=== PATIENT | male | born 1970 | race Caucasian/White ===

== ENCOUNTER → 2017-02-10 | Outpatient (REF) | payer OTHER ==
[2017-02-10 12:24] LABS: ALBUMIN 3.9 GM/DL (3.2-5.2); ALBUMIN/GLOBULIN RATIO 1.18 (1.00-1.93); ALKALINE PHOSPHATASE 84 U/L (45-117); ALT/SGPT 70 U/L (12-78); ANION GAP 9 MEQ/L (8-16); AST/SGOT 29 U/L (15-37); BILIRUBIN,TOTAL 0.7 MG/DL (0.2-1.0); BLOOD UREA NITROGEN 21 MG/DL (7-18); CALCIUM LEVEL 8.7 MG/DL (8.5-10.1); CARBON DIOXIDE LEVEL 26 MEQ/L (21-32); CHLORIDE LEVEL 110 MEQ/L (98-107); CHOLESTEROL LEVEL 213 MG/DL (<200); CREATININE FOR GFR 1.15 MG/DL (0.70-1.30); GLOMERULAR FILTRATION RATE > 60.0 (>60); GLUCOSE, FASTING 100 MG/DL (70-105); POTASSIUM SERUM 4.2 MEQ/L (3.5-5.1); SODIUM LEVEL 145 MEQ/L (136-145); TOTAL PROTEIN 7.2 GM/DL (6.4-8.2); TRIGLYCERIDES LEVEL 127 MG/DL (<150)
== END ==
LOC: M LABDRAW1 09:37
PROVIDERS: ATTEND Emergency Medicine
DX: Z00.00 Encounter for general adult medical examination without abnormal findings (principal)

== ENCOUNTER → 2018-08-25 | Outpatient (CLI) | payer OTHER ==
--- NOTE | 2018-08-26 02:06 | REP ---
Clinical: Lumbago. Comparison: 07/29/2010 Technique: AP, lateral, bilateral oblique, and coned-down views. Findings: Evidence for chronic stable spondylolysis and grade 1 spondylolisthesis at the L5-S1. Mild multilevel degenerative changes include subtle endplate sclerosis. No acute fracture / compression injury. Impression: Chronic stable L5 spondylolysis and grade 1 spondylolisthesis at L5-S1. Electronically Signed by Osman Julien MD 08/26/2018 01:58 A
== END ==
LOC: M WUC 17:38
PROVIDERS: ATTEND Physician Assistant
DX: M54.42 Lumbago with sciatica, left side (principal); M43.06 Spondylolysis, lumbar region

== ENCOUNTER → 2018-08-25 | Outpatient (REF) | payer OTHER ==
[2018-08-25 13:43] LABS: ALBUMIN 4.2 GM/DL (3.2-5.2); ALT/SGPT 57 U/L (12-78); BILIRUBIN,TOTAL 0.6 MG/DL (0.2-1.0); BLOOD UREA NITROGEN 20 MG/DL (7-18); CALCIUM LEVEL 8.7 MG/DL (8.5-10.1); CARBON DIOXIDE LEVEL 26 MEQ/L (21-32); CHLORIDE LEVEL 110 MEQ/L (98-107); CHOLESTEROL LEVEL 201 MG/DL (<200); CHOLESTEROL RISK RATIO 5.583 (<5); CREATININE FOR GFR 1.04 MG/DL (0.70-1.30); GLOMERULAR FILTRATION RATE > 60.0 (>56); GLUCOSE, FASTING 86 MG/DL (70-100); HDL CHOLESTEROL 36 MG/DL (>40); LDL CHOLESTEROL 144 MG/DL (<100); MAGNESIUM LEVEL 2.4 MG/DL (1.8-2.4); NON-HDL-C 165 MG/DL; POTASSIUM SERUM 4.2 MEQ/L (3.5-5.1); SODIUM LEVEL 143 MEQ/L (136-145); TOTAL PROTEIN 7.3 GM/DL (6.4-8.2); TRIGLYCERIDES LEVEL 106 MG/DL (<150)
== END ==
LOC: M LABDRAW1 12:01
PROVIDERS: ATTEND Physician Assistant
DX: E78.2 Mixed hyperlipidemia (principal)

== ENCOUNTER 2020-05-03 11:47 | Inpatient (IN) | payer OTHER ==
[~2020-05-03] VITALS: Ht 162.6 cm; Wt 83.5 kg
[2020-05-03 12:22] LABS: BASO % 0.2 % (0.0-1.0); HEMATOCRIT 41.4 % (42.0-52.0); HEMOGLOBIN 13.4 g/dl (13.5-17.5); LYMPH # 0.7 10^3/uL (1.5-5.0); MEAN CORPUSCULAR HGB CONC 32.4 g/dl (32.0-36.5); MEAN CORPUSCULAR VOLUME 86.6 fl (80.0-96.0); MONO # 0.2 10^3/uL (0.0-0.8); MONO % 2.2 % (0.0-5.0); NEUTROPHILS # 7.4 10^3/uL (1.5-8.5); NEUTROPHILS % 87.8 % (36.0-66.0); PLATELET COUNT, AUTOMATED 228 10^3/uL (150-450); RED BLOOD COUNT 4.78 10^6/uL (4.30-6.10); WHITE BLOOD COUNT 8.5 10^3/uL (4.0-10.0)
--- NOTE | 2020-05-03 12:26 | REP ---
INDICATION: Coronavirus workup COMPARISON: 07/03/2007 TECHNIQUE: Portable AP view of the chest FINDINGS: Diffuse bilateral interstitial and alveolar infiltrates are appreciated including moderate to large areas of consolidation in the left mid to lower lung zone. No obvious effusion. No pneumothorax. Mediastinum and cardiac silhouette within normal limits. Skeletal structures intact. IMPRESSION: Multifocal infiltrates and areas of consolidation consistent with COVID-19 <Electronically signed by Osman Julien > 05/03/20 1222
[2020-05-03 12:34] LABS: INR 1.16; PROTHROMBIN TIME 15.1 SECONDS (12.5-14.3)
[2020-05-03] MEDS: NS 1,000 ML IV SCH ×2 (12:34→16:19)
[2020-05-03 12:35] LABS: PARTIAL THROMBOPLASTIN TIME 36.7 SECONDS (24.2-38.5)
[2020-05-03 12:38] LABS: D-DIMER QUANT 1472.89 ng/ml (<500)
[2020-05-03] MEDS ORDERED: cefTRIAXone SOD 1 GM in D5W MINI-BAG PLUS 50 ML IV ONE (12:45)
[2020-05-03] MEDS ORDERED: AZITHROMYCIN INJ 500 MG, VIAL MATE ADAPTER 1 EACH in D5W 250 ML IV ONE (12:45)
[2020-05-03] MEDS ORDERED: ACET-897 PO (12:46)
[2020-05-03 13:13] LABS: ALBUMIN 2.9 GM/DL (3.2-5.2); ALT/SGPT 53 U/L (12-78); BILIRUBIN,TOTAL 0.7 MG/DL (0.2-1.0); BLOOD UREA NITROGEN 18 MG/DL (7-18); CALCIUM LEVEL 7.9 MG/DL (8.5-10.1); CARBON DIOXIDE LEVEL 25 MEQ/L (21-32); CHLORIDE LEVEL 103 MEQ/L (98-107); CK-MB VALUE MASS < 1.0 NG/ML (<3.6); CPK CREATINE PHOSPHOKINASE 470 U/L (39-308); CREATININE FOR GFR 1.16 MG/DL (0.70-1.30); FERRITIN 2532 NG/ML (26-388); GLOMERULAR FILTRATION RATE > 60.0 (>56); GLUCOSE, FASTING 118 MG/DL (70-100); LDH LACTATE DEHYDROGENASE 952 U/L (87-241); MAGNESIUM LEVEL 2.2 MG/DL (1.8-2.4); MB/CK RELATIVE INDEX 0.21 (< OR =4); POTASSIUM SERUM 3.3 MEQ/L (3.5-5.1); SODIUM LEVEL 136 MEQ/L (136-145); TOTAL PROTEIN 6.4 GM/DL (6.4-8.2); TROPONIN I < 0.02 NG/ML (< 0.10)
--- NOTE | 2020-05-03 14:14 | HPEPDOC ---
[facility] Medical History & Physical Date of Admission May 03, 2020 Date of Service: May 03, 2020 History and Physical Chief complaint: Subjective the ER with weakness and fatigue History of present illness: Patient is a 50-year-old male with a PMHx DLP, Depression, Chronic back pain, Seasonal allergies, who presented to the emergency room reporting weakness and fatigue. Patient reported that on 04/24 he was expressing a mild cough and symptoms of an upper respiratory tract infection and ultimately went for COVID-19 testing on 04/26 at [place]. Patient was found to be positive and remained at home. Patient reported that he was resting throughout the week and drinking plenty of fluid. He noted that he was progressively feeling weaker and came to the ER for further evaluation. Currently patient denies any chest pain or palpitations. He denies any significant shortness of breath. He does report a mild cough without any significant expectoration of sputum. Patient reports some nausea without vomiting. Denies any abdominal pain. Does report diarrhea and has experience 3 loose bowel movements yesterday without any evidence of blood. Patient denies any urinary discomfort. Patient reports that he may have experienced fevers but nothing too significant and does report chills while at home. Reports his appetite is been fairly poor but is unsure of any changes in his weight. Past Medical History: DLP, Depression, Chronic back pain, Seasonal allergies Past Surgical History: Patient denies any prior surgeries. 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 Review of Systems: 10 point review of systems complete, all negative otherwise stated in HPI Physical exam: - Vitals: BP [126/80], HR [96], RR [20], Sat [94%Vapotherm@[id number]], Temp [99.1F] - General: Lying on his stomach in bed, No acute distress and actually reports that he is more comfortable, AAOx3 - HEENT: NC, AT, PERRLA, EOMI - CVS: RRR, +S1S2, - Murmurs / rubs / gallops - Lungs: Fair air entry bilaterally, auscultation 30 does not appear to be any wheezing, rhonchi or rales - Abdomen: Soft, Non-distended, Non-tender - Extremities: No evidence of edema, No calf tenderness - Neuro: No focal motor or sensory deficit - Skin: No visible rashes Labs: See below Imaging: CXR 05/02: Diffuse bilateral interstitial and alveolar infiltrates are appreciated including moderate to large areas of consolidation in the left mid to lower lung zone. No obvious effusion. No pneumothorax. Mediastinum and cardiac silhouette within normal limits. Skeletal structures intact. EKG: See below Assessment and Plan: Acute hypoxic respiratory failure - likely 2/2 pneumonia - 2/2 COVID-19 pneumonia, less likely 2/2 bacterial pneumonia - Resented to the emergency room with progressive, however, denied any shortness of breath or significant cough - Physical does not reveal any significant adventitious lung sounds - Patient was profoundly hypoxic when he came to the emergency room saturating at 74% on room air; however, was not in respiratory distress - Patient has been placed on VapoTherm at 100% FiO2 and his saturations have improved to 94-95% - [facility] - Lab work reveals marked elevation of all inflammatory markers - CXR 05/03: Multifocal infiltrates and areas of consolidation consistent with COVID-19 - Consulted pulmonology; Dr. Soto; case discussed - Discussed with Anesthesia telecommunications professional about the possibility of intubation if patient has a clinical deterioration - Will check blood cultures / sputum cultures / trend inflammatory markers - Will start Dexamethasone / Remdesivir / Tocilizumab - Will c/w Ceftriaxone and Doxycycline (Day #1) - will discontinue once procalcitonin results and is negative - Will start incentive spirometry / acapella - ICU for VapoTherm and Prone positioning and high risk of intubation if he continues to experience a clinical decline Hypokalemia - Will supplement via PO route Normocytic anemia - Will continue follow CBC DLP - Currently not on medications Depression - Currently not on medications Chronic back pain - Will start Tylenol PRN Seasonal allergies - Currently not on medications DVT prophylaxis - Will start weight based DVT prophylaxis; Lovenox 40 BID Vital Signs Vital Signs Date Time Temp Pulse Resp B/P (MAP) Pulse Ox O2 Delivery O2 Flow Rate FiO2 05/03/20 13:00 96 20 126/80 (95) 94 High Flow Cannula 40.0 100 05/03/20 11:56 99.1 Laboratory Data Labs 24H Laboratory Tests 2 05/03/20 11:58: Lactic Acid Level 2.1*H 05/03/20 12:00: Anion Gap 8, Glomerular Filtration Rate > 60.0, Calcium Level 7.9L, Magnesium Level 2.2, Ferritin 2532H, Total Bilirubin 0.7, Aspartate Amino Transf (AST/SGOT) 80H, Alanine Aminotransferase (ALT/SGPT) 53, Alkaline Phosphatase 60, Lactate Dehydrogenase 952H, Total Creatine Kinase 470H, Creatine Kinase MB < 1.0, Creatine Kinase MB Relative Index 0.21, Troponin I < 0.02, C-Reactive Protein, Quantitative 18.90H, Total Protein 6.4, Albumin 2.9L, Albumin/Globulin Ratio 0.8, Procalcitonin 0.62 05/03/20 12:02: Immature Granulocyte % (Auto) 1.8, Neutrophils (%) (Auto) 87.8H, Lymphocytes (%) (Auto) 8.0L, Monocytes (%) (Auto) 2.2, Eosinophils (%) (Auto) 0.0, Basophils (%) (Auto) 0.2, Neutrophils # (Auto) 7.4, Lymphocytes # (Auto) 0.7L, Monocytes # (Auto) 0.2, Eosinophils # (Auto) 0.0, Basophils # (Auto) 0.0, Nucleated Red Blood Cells % (auto) 0.4H 05/03/20 12:03: Prothrombin Time 15.1H, Prothromb Time International Ratio 1.16, Activated Partial Thromboplast Time 36.7, Fibrinogen 789H, D-Dimer, Quantitative 1472.89H 05/03/20 12:11: POC pH (Misc Panel) 7.512H, POC Base Excess (Misc Panel) 0.0, POC Saturated Percent O2 (Misc) 94L, POC pO2 (Misc Panel) 63.0L, POC pCO2 (Misc Panel) 28.5L, POC HCO3 (Misc Panel) 22.9, POC Total CO2 (Misc Panel) 24.0, POC Troponin I (Misc) 0.01 05/03/20 12:23: POC Total CO2 (Misc Panel) 23.0, POC Glucose (Misc Panel) 121H, POC Sodium (Misc Panel) 135L, POC Potassium (Misc Panel) 3.0L, POC Chloride (Misc Panel) 100, POC Blood Urea Nitrogen (Misc Panel 17, POC Ionized Calcium (Misc Panel) 4.2L, POC Creatinine (Misc Panel) 1.0, POC Hematocrit (Misc Panel) 41.0 CBC/BMP Laboratory Tests 05/03/20 12:00 05/03/20 12:02 Microbiology Microbiology 05/03/20 Blood Culture, Received Pending 05/03/20 Blood Culture, Received Pending Home Medications Scheduled PRN Acetaminophen (Tylenol Extra Strength) 500 Mg Tablet, 1,000 MG PO Q6H PRN for PAIN / FEVER Allergies Coded Allergies: No Known Allergies (Unverified , 05/03/20) HAMIDA GONZALEZ MD May 03, 2020 14:14
[2020-05-03] MEDS ORDERED: POTASSIUM CHLORIDE 10 MEQ SR TABLET PO ONE (14:15)
[2020-05-03] MEDS ORDERED: NS IV ONE (15:00)
[2020-05-03] MEDS ORDERED: TOCILIZUMAB IV ONE (15:00)
[2020-05-03 15:05] VITALS: BP 122/84
[2020-05-03] MEDS: dexameTHASONE 4 MG/ML 1ML VIAL (J1100 PER 1MG) IV SCH (15:23)
[2020-05-03] MEDS ORDERED: REMDESIVIR (INVESTIGATIONAL) 200 MG in NS 210 ML IV ONE (16:00)
--- NOTE | 2020-05-03 16:17 | ECGEPIP ---
[facility] - ED Test Date: 2020-05-03 Pat Name: JOSE FLORENCE Department: Room: - Gender: Male Hyperbaric Tech: : [id number] Requested By: Leanna Sanderson Order Number: [id number] Reading MD: Leanna Sanderson Measurements Intervals [place] Rate: 109 P: 7 MD: 177 QRS: -8 QRSD: 78 T: -7 QT: 325 QTc: 439 Interpretive Statements SINUS TACHYCARDIA POSSIBLE LEFT ATRIAL ENLARGEMENT ABNORMAL RHYTHM ECG NSTTW abnormalities No prior Electronically Signed on 05-03-2020 16:17:39 EST by Leanna Sanderson
[2020-05-03 17:43] VITALS: BP 125/81
[2020-05-03] MEDS: DOXYCYCLINE HYCLATE 100 MG in D5W MINI-BAG PLUS 100 ML IV SCH (18:20)
[2020-05-03 20:00] VITALS: BP 123/89
[2020-05-03] MEDS ORDERED: ENOXAPARIN 100MG/1ML SYRINGE (J1650 PER 10MG) SC SCH (21:00)
[2020-05-04] VITALS (9 sets, daily range): BP systolic 108–144; BP diastolic 71–92; O2SAT 91
[2020-05-04] MEDS: NS 1,000 ML IV SCH ×3 (01:28→21:03)
[2020-05-04] MEDS: DOXYCYCLINE HYCLATE 100 MG in D5W MINI-BAG PLUS 100 ML IV SCH ×2 (03:20→14:34)
[2020-05-04 05:17] LABS: HEMATOCRIT 39.4 % (42.0-52.0); HEMOGLOBIN 12.4 g/dl (13.5-17.5); MEAN CORPUSCULAR HEMOGLOBIN 27.9 pg (27.0-33.0); MEAN CORPUSCULAR HGB CONC 31.5 g/dl (32.0-36.5); MEAN CORPUSCULAR VOLUME 88.5 fl (80.0-96.0); PLATELET COUNT, AUTOMATED 251 10^3/uL (150-450); RED BLOOD COUNT 4.45 10^6/uL (4.30-6.10); WHITE BLOOD COUNT 6.4 10^3/uL (4.0-10.0)
[2020-05-04 05:33] LABS: INR 1.13; PROTHROMBIN TIME 14.8 SECONDS (12.5-14.3)
[2020-05-04 05:34] LABS: PARTIAL THROMBOPLASTIN TIME 41.7 SECONDS (24.2-38.5)
[2020-05-04 05:54] LABS: ALBUMIN 2.5 GM/DL (3.2-5.2); ALT/SGPT 48 U/L (12-78); BILIRUBIN,DIRECT 0.2 MG/DL (0.0-0.2); BILIRUBIN,TOTAL 0.5 MG/DL (0.2-1.0); BLOOD UREA NITROGEN 17 MG/DL (7-18); CALCIUM LEVEL 7.6 MG/DL (8.5-10.1); CARBON DIOXIDE LEVEL 26 MEQ/L (21-32); CHLORIDE LEVEL 108 MEQ/L (98-107); CREATININE FOR GFR 0.93 MG/DL (0.70-1.30); FERRITIN 2108 NG/ML (26-388); GLOMERULAR FILTRATION RATE > 60.0 (>56); GLUCOSE, FASTING 127 MG/DL (70-100); MAGNESIUM LEVEL 2.3 MG/DL (1.8-2.4); POTASSIUM SERUM 4.2 MEQ/L (3.5-5.1); SODIUM LEVEL 140 MEQ/L (136-145); TOTAL PROTEIN 5.6 GM/DL (6.4-8.2)
[2020-05-04 05:58] LABS: ATYPICAL LYMPH 2 % (0-5); LYMPHOCYTES 12 % (16-44); MONOCYTES 2 % (0-5); NEUTROPHILS 81 % (28-66); PLATELET ESTIMATE NORMAL (NORMAL)
[2020-05-04] MEDS ORDERED: ENOXAPARIN 40MG/0.4ML SYRINGE (J1650 PER 10MG) SC SCH (07:59)
[2020-05-04] MEDS: ENOXAPARIN 40MG/0.4ML SYRINGE (J1650 PER 10MG) SC SCH ×2 (08:16→21:03)
--- NOTE | 2020-05-04 10:28 | CCN ---
CRITICAL CARE NOTE DATE: 05/04/2020 CRITICAL CARE TIME: 30 minutes. This excludes all procedures. SUBJECTIVE: I viewed the patient from the bedside. According to the patient's nurse, he has a nonproductive cough. He is proning most of the time, but has had some back pain. His oxygen requirements have actually decreased. He is now on 80% FiO2 with a liter flow rate of 40 with oxygen saturations in the mid 90s. When I left him yesterday, he was on 100% FiO2 with a 40 liter flow rate bordering on 88-89%. We were asked to follow the patient mainly for treatment for COVID with remdesivir, Decadron, and he has already received tocilizumab. He is on the 5-day course currently for the remdesivir. I think this is adequate. We are attempting to avoid intubation. It does appear that his ferritin and AST have decreased. He has a minimal bandemia of 3% today with a white blood cell count of 6.4. CRP has decreased to 17.4. I have added Protonix for DVT prophylaxis. OBJECTIVE: Vital signs today temperature is 98.4, pulse is 80, respiratory rate 19, blood pressure is 130/80 with a mean arterial pressure of 97. Oxygen saturation is 95% on 0.80. The remainder of the physical exam was not performed due to decreased exposure to COVID patients. Physical examination was performed by the primary care team. ASSESSMENT: Severe hypoxic respiratory failure secondary to COVID pneumonia. PLAN: Recommend continuing Decadron and remdesivir. I have added Protonix for GI prophylaxis. The patient is on Lovenox for DVT prophylaxis at the 0.5 mg/kg every 12 hours. We will continue to monitor for continued respiratory failure.
[2020-05-04] MEDS: cefTRIAXone SOD 1 GM in D5W MINI-BAG PLUS 50 ML IV SCH (12:09)
[2020-05-04] MEDS: PANTOPRAZOLE 40MG VIAL (C9113 PER 1) IV SCH (12:09)
[2020-05-04] MEDS: dexameTHASONE 4 MG/ML 1ML VIAL (J1100 PER 1MG) IV SCH (14:35)
[2020-05-04] MEDS: REMDESIVIR (INVESTIGATIONAL) 100 MG in NS 230 ML IV SCH (16:20)
--- NOTE | 2020-05-04 18:17 | IPNPDOC ---
Text Note Date of Service The patient was seen on 05/04/20. NOTE Subjective: Patient chart reviewed, discussed with nurse. No acute overnight events reported. No new medical complaints reported. Reported to have occasional episodes of diaphoresis. Objective: VS: O2 sats 95% with vapotherm on FiO2 0.8 General: NAD, lying comfortably in bed A/P: 50 yo male presented for several day history of worsening weakness and fatigue, admitted for severe hypoxic respiratory failure secondary to COVID pneumonia with PMHx DLP, depression, chronic back pain, and seasonal allergies. A/P: #Acute hypoxic respiratory failure - 2/2 COVID-19 pneumonia - continue decadron, remdesivir day #1 - supplemental oxygen - vapotherm at FiO2 0.8 - to maintain O2 sats >90% - Will check blood cultures / sputum cultures / trend inflammatory markers - ceftriaxone and Doxycycline (Day #2) - incentive spirometry / acapella - inflammatory markers improving #Hypokalemia - resolved - continue to monitor #Normocytic anemia - Will continue follow CBC #DLP - Currently not on medications #Depression - Currently not on medications #Chronic back pain - Tylenol PRN #Seasonal allergies - Currently not on medications #DVT prophylaxis - Lovenox 40BID #GI prophylaxis - protonix VS,Fishbone, I+O VS, Fishbone, I+O Laboratory Tests 05/04/20 04:50 Vital Signs Date Time Temp Pulse Resp B/P (MAP) Pulse Ox O2 Delivery O2 Flow Rate FiO2 05/04/20 17:00 99.6 81 90 HVNI-Vapotherm 40.0 80 05/04/20 16:00 20 132/89 (103) I&O- Last 24 Hours up to 6 AM 05/04/20 05:59 Intake Total 2952.5 ml Output Total 600 ml Balance 2352.5 ml LES FLORES MD May 04, 2020 18:17
[2020-05-05] VITALS (12 sets, daily range): BP systolic 126–152; BP diastolic 83–94
[2020-05-05] MEDS: DOXYCYCLINE HYCLATE 100 MG in D5W MINI-BAG PLUS 100 ML IV SCH ×2 (03:56→14:21)
[2020-05-05 05:00] LABS: BASO % 0.2 % (0.0-1.0); HEMATOCRIT 38.5 % (42.0-52.0); HEMOGLOBIN 12.1 g/dl (13.5-17.5); LYMPH # 0.6 10^3/uL (1.5-5.0); LYMPH % 8.6 % (24.0-44.0); MEAN CORPUSCULAR HEMOGLOBIN 27.7 pg (27.0-33.0); MEAN CORPUSCULAR HGB CONC 31.4 g/dl (32.0-36.5); MEAN CORPUSCULAR VOLUME 88.1 fl (80.0-96.0); MONO # 0.3 10^3/uL (0.0-0.8); MONO % 4.2 % (0.0-5.0); NEUTROPHILS # 5.4 10^3/uL (1.5-8.5); NEUTROPHILS % 84.6 % (36.0-66.0); PLATELET COUNT, AUTOMATED 304 10^3/uL (150-450); RED BLOOD COUNT 4.37 10^6/uL (4.30-6.10); WHITE BLOOD COUNT 6.4 10^3/uL (4.0-10.0)
[2020-05-05 05:12] LABS: INR 1.18; PROTHROMBIN TIME 15.3 SECONDS (12.5-14.3)
[2020-05-05 05:13] LABS: PARTIAL THROMBOPLASTIN TIME 36.6 SECONDS (24.2-38.5)
[2020-05-05 05:23] LABS: ALBUMIN 2.4 GM/DL (3.2-5.2); ALT/SGPT 47 U/L (12-78); BILIRUBIN,DIRECT 0.2 MG/DL (0.0-0.2); BILIRUBIN,TOTAL 0.5 MG/DL (0.2-1.0); BLOOD UREA NITROGEN 21 MG/DL (7-18); C REACTIVE PROTEIN QUANTITATIV 8.58 MG/DL (0.00-0.30); CALCIUM LEVEL 7.7 MG/DL (8.5-10.1); CARBON DIOXIDE LEVEL 23 MEQ/L (21-32); CHLORIDE LEVEL 113 MEQ/L (98-107); CREATININE FOR GFR 0.85 MG/DL (0.70-1.30); FERRITIN 1960 NG/ML (26-388); GLOMERULAR FILTRATION RATE > 60.0 (>56); GLUCOSE, FASTING 124 MG/DL (70-100); MAGNESIUM LEVEL 2.3 MG/DL (1.8-2.4); POTASSIUM SERUM 3.8 MEQ/L (3.5-5.1); SODIUM LEVEL 143 MEQ/L (136-145); TOTAL PROTEIN 5.3 GM/DL (6.4-8.2)
[2020-05-05] MEDS: PANTOPRAZOLE 40MG VIAL (C9113 PER 1) IV SCH (08:34)
[2020-05-05] MEDS: ENOXAPARIN 40MG/0.4ML SYRINGE (J1650 PER 10MG) SC SCH ×2 (08:35→20:19)
--- NOTE | 2020-05-05 11:44 | IPNPDOC ---
Text Note Date of Service The patient was seen on 05/05/20. NOTE Subjective: Patient chart reviewed, discussed with nurse. No acute overnight events reported. No new medical complaints reported. Diarrhea is improving. Patient states he is feeling better. Objective: VS: O2 sats 95% with vapotherm on FiO2 0.4 General: NAD, lying comfortably in bed A/P: 50 yo male presented for several day history of worsening weakness and fatigue, admitted for severe hypoxic respiratory failure secondary to COVID pneumonia with PMHx DLP, depression, chronic back pain, and seasonal allergies. A/P: #Acute hypoxic respiratory failure - 2/2 COVID-19 pneumonia - continue decadron, remdesivir day #2 - supplemental oxygen - vapotherm at FiO2 0.8 - to maintain O2 sats >90% - Will check blood cultures / sputum cultures / trend inflammatory markers - ceftriaxone and Doxycycline (Day #3) - incentive spirometry / acapella - inflammatory markers improving #Hypokalemia - resolved - continue to monitor #Normocytic anemia - Will continue follow CBC #DLP - Currently not on medications #Depression - Currently not on medications #Chronic back pain - Tylenol PRN #Seasonal allergies - Currently not on medications #DVT prophylaxis - Lovenox 40BID #GI prophylaxis - protonix Disposition: continue current plan of care, patient improving VS,Jazzmine, I+O VS, Jazzmine, I+O Laboratory Tests 05/05/20 04:48 Vital Signs Date Time Temp Pulse Resp B/P (MAP) Pulse Ox O2 Delivery O2 Flow Rate FiO2 05/05/20 09:00 78 92 HVNI-Vapotherm 40.0 60 05/05/20 08:00 142/88 (106) 05/05/20 06:00 18 05/05/20 04:00 98.0 I&O- Last 24 Hours up to 6 AM 05/05/20 06:00 Intake Total 2200 ml Output Total 1150 ml Balance 1050 ml LES FLORES MD May 05, 2020 11:44
[2020-05-05] MEDS: cefTRIAXone SOD 1 GM in D5W MINI-BAG PLUS 50 ML IV SCH (12:49)
[2020-05-05] MEDS: NS 1,000 ML IV SCH (12:49)
[2020-05-05] MEDS: SLF 3 ML SYR IV SCH ×2 (14:21→20:38)
[2020-05-05] MEDS: dexameTHASONE 4 MG/ML 1ML VIAL (J1100 PER 1MG) IV SCH (14:21)
[2020-05-05] MEDS: REMDESIVIR (INVESTIGATIONAL) 100 MG in NS 230 ML IV SCH (16:29)
[2020-05-06] VITALS (12 sets, daily range): BP systolic 115–148; BP diastolic 61–96
[2020-05-06] MEDS: NS 1,000 ML IV SCH ×3 (02:55→13:46)
[2020-05-06] MEDS: DOXYCYCLINE HYCLATE 100 MG in D5W MINI-BAG PLUS 100 ML IV SCH ×2 (03:11→14:59)
[2020-05-06 05:09] LABS: HEMATOCRIT 37.2 % (42.0-52.0); HEMOGLOBIN 12.1 g/dl (13.5-17.5); MEAN CORPUSCULAR HEMOGLOBIN 28.9 pg (27.0-33.0); MEAN CORPUSCULAR HGB CONC 32.5 g/dl (32.0-36.5); MEAN CORPUSCULAR VOLUME 88.8 fl (80.0-96.0); PLATELET COUNT, AUTOMATED 333 10^3/uL (150-450); RED BLOOD COUNT 4.19 10^6/uL (4.30-6.10); WHITE BLOOD COUNT 5.8 10^3/uL (4.0-10.0)
[2020-05-06 05:20] LABS: INR 1.31; PARTIAL THROMBOPLASTIN TIME 34.1 SECONDS (24.2-38.5); PROTHROMBIN TIME 16.6 SECONDS (12.5-14.3)
[2020-05-06 05:29] LABS: ALBUMIN 2.3 GM/DL (3.2-5.2); ALT/SGPT 52 U/L (12-78); BILIRUBIN,DIRECT 0.1 MG/DL (0.0-0.2); BILIRUBIN,TOTAL 0.5 MG/DL (0.2-1.0); BLOOD UREA NITROGEN 20 MG/DL (7-18); CALCIUM LEVEL 7.7 MG/DL (8.5-10.1); CARBON DIOXIDE LEVEL 24 MEQ/L (21-32); CHLORIDE LEVEL 111 MEQ/L (98-107); CREATININE FOR GFR 0.78 MG/DL (0.70-1.30); FERRITIN 1633 NG/ML (26-388); GLOMERULAR FILTRATION RATE > 60.0 (>56); GLUCOSE, FASTING 112 MG/DL (70-100); MAGNESIUM LEVEL 2.1 MG/DL (1.8-2.4); POTASSIUM SERUM 3.7 MEQ/L (3.5-5.1); SODIUM LEVEL 140 MEQ/L (136-145); TOTAL PROTEIN 5.4 GM/DL (6.4-8.2)
[2020-05-06 05:39] LABS: ATYPICAL LYMPH 2 % (0-5); LYMPHOCYTES 12 % (16-44); MONOCYTES 5 % (0-5); NEUTROPHILS 80 % (28-66)
[2020-05-06 05:40] LABS: PLATELET ESTIMATE NORMAL (NORMAL)
[2020-05-06] MEDS: SLF 3 ML SYR IV SCH ×3 (06:29→21:45)
[2020-05-06] MEDS: PANTOPRAZOLE 40MG VIAL (C9113 PER 1) IV SCH (08:48)
[2020-05-06] MEDS: ENOXAPARIN 40MG/0.4ML SYRINGE (J1650 PER 10MG) SC SCH ×2 (08:48→21:11)
[2020-05-06] MEDS: cefTRIAXone SOD 1 GM in D5W MINI-BAG PLUS 50 ML IV SCH (13:46)
[2020-05-06] MEDS: ACETAMINOPHEN TAB 650MG DOSE (2X325MG) PO PRN ×2 (15:33→21:12)
[2020-05-06] MEDS: REMDESIVIR (INVESTIGATIONAL) 100 MG in NS 230 ML IV SCH (16:17)
--- NOTE | 2020-05-06 19:17 | IPNPDOC ---
Text Note Date of Service The patient was seen on 05/06/20. NOTE Subjective: Patient chart reviewed, discussed with nurse. No acute overnight events reported. No new medical complaints reported., Tolerating diet. Patient states he is feeling better. Objective: VS: O2 sats 95% with vapotherm on FiO2 0.4 General: NAD, lying comfortably in bed A/P: 50 yo male presented for several day history of worsening weakness and fatigue, admitted for severe hypoxic respiratory failure secondary to COVID pneumonia with PMHx DLP, depression, chronic back pain, and seasonal allergies. A/P: #Acute hypoxic respiratory failure - 2/2 COVID-19 pneumonia - continue decadron, remdesivir day #3 - supplemental oxygen - vapotherm weaned to FiO2 0.4 - to maintain O2 sats >90% - Will check blood cultures / sputum cultures / trend inflammatory markers - ceftriaxone and Doxycycline (Day #4) - incentive spirometry / acapella - inflammatory markers improving #Hypokalemia - resolved - continue to monitor #Normocytic anemia - Will continue follow CBC #DLP - Currently not on medications #Depression - Currently not on medications #Chronic back pain - Tylenol PRN #Seasonal allergies - Currently not on medications #DVT prophylaxis - Lovenox 40BID #GI prophylaxis - protonix Disposition: continue current plan of care, patient improving VS,Jazzmine, I+O VS, Jazzmine, I+O Laboratory Tests 05/06/20 04:41 05/06/20 04:42 Vital Signs Date Time Temp Pulse Resp B/P (MAP) Pulse Ox O2 Delivery O2 Flow Rate FiO2 05/06/20 18:08 82 145/90 (108) 91 HVNI-Vapotherm 40.0 40 05/06/20 16:00 97.6 20 I&O- Last 24 Hours up to 6 AM 05/06/20 06:00 Intake Total 3240 ml Output Total 2025 ml Balance 1215 ml LES FLORES MD May 06, 2020 19:17
[2020-05-06] MEDS ORDERED: zolPIDEM TARTRATE 5 MG TAB PO ONE (19:30)
[2020-05-06] MEDS: SLF 3 ML SYR IV PRN (21:12)
[2020-05-07] VITALS (9 sets, daily range): BP systolic 121–151; BP diastolic 86–101; O2SAT 91
[2020-05-07] MEDS: DOXYCYCLINE HYCLATE 100 MG in D5W MINI-BAG PLUS 100 ML IV SCH ×2 (02:07→14:27)
[2020-05-07] MEDS: NS 1,000 ML IV SCH ×2 (02:07→09:13)
[2020-05-07 05:17] LABS: HEMATOCRIT 38.2 % (42.0-52.0); HEMOGLOBIN 12.1 g/dl (13.5-17.5); MEAN CORPUSCULAR HEMOGLOBIN 27.8 pg (27.0-33.0); MEAN CORPUSCULAR HGB CONC 31.7 g/dl (32.0-36.5); MEAN CORPUSCULAR VOLUME 87.6 fl (80.0-96.0); PLATELET COUNT, AUTOMATED 321 10^3/uL (150-450); RED BLOOD COUNT 4.36 10^6/uL (4.30-6.10); WHITE BLOOD COUNT 5.4 10^3/uL (4.0-10.0)
[2020-05-07 05:37] LABS: ATYPICAL LYMPH 3 % (0-5); EOSINOPHILS 2 % (0-3); LYMPHOCYTES 18 % (16-44); MONOCYTES 4 % (0-5); NEUTROPHILS 71 % (28-66)
[2020-05-07 05:38] LABS: PLATELET ESTIMATE NORMAL (NORMAL)
[2020-05-07] MEDS: SLF 3 ML SYR IV SCH ×3 (05:43→20:01)
[2020-05-07 05:46] LABS: INR 1.19; PARTIAL THROMBOPLASTIN TIME 33.6 SECONDS (24.2-38.5); PROTHROMBIN TIME 15.4 SECONDS (12.5-14.3)
[2020-05-07 05:48] LABS: ALBUMIN 2.3 GM/DL (3.2-5.2); ALT/SGPT 83 U/L (12-78); BILIRUBIN,DIRECT 0.2 MG/DL (0.0-0.2); BILIRUBIN,TOTAL 0.7 MG/DL (0.2-1.0); BLOOD UREA NITROGEN 18 MG/DL (7-18); C REACTIVE PROTEIN QUANTITATIV 2.06 MG/DL (0.00-0.30); CALCIUM LEVEL 7.3 MG/DL (8.5-10.1); CARBON DIOXIDE LEVEL 24 MEQ/L (21-32); CHLORIDE LEVEL 109 MEQ/L (98-107); CREATININE FOR GFR 0.72 MG/DL (0.70-1.30); FERRITIN 1386 NG/ML (26-388); GLOMERULAR FILTRATION RATE > 60.0 (>56); GLUCOSE, FASTING 85 MG/DL (70-100); MAGNESIUM LEVEL 1.9 MG/DL (1.8-2.4); POTASSIUM SERUM 3.6 MEQ/L (3.5-5.1); SODIUM LEVEL 139 MEQ/L (136-145); TOTAL PROTEIN 4.8 GM/DL (6.4-8.2)
[2020-05-07] MEDS: PANTOPRAZOLE 40MG VIAL (C9113 PER 1) IV SCH (09:07)
[2020-05-07] MEDS: ENOXAPARIN 40MG/0.4ML SYRINGE (J1650 PER 10MG) SC SCH ×2 (09:07→20:00)
[2020-05-07] MEDS ORDERED: RAMELTEON 8 MG TAB (ROZEREM) PO PRN (13:00)
--- NOTE | 2020-05-07 13:01 | IPNPDOC ---
Text Note Date of Service The patient was seen on 05/07/20. NOTE Subjective: Patient seen and examined at bedside. Complains of low back pain . He reports that he always has a back issue it is now just worse sitting and laying in the bed all day. He also has some continuing loose bowel movements but says its getting thicker. Denies any abdominal pain or nausea or vomiting. Reports that he is able to finish 75% of his meals. Says that feeling better. Objective: VS: As below General: NAD, sitting up in bed in no acute distress. HEENT: NC/AT, moist mucous membranes, anicteric eyes. Neck no JVD, no thyromegaly Chest: Bilateral good air entry, crackles at the left base>right, No wheezing or ronchi. CVS: S1, S2 regular, mild tachycardia, no rub or murmur or gallop Abdomen: soft, nontender, bowel sounds normal Extremities: no edema , No calf tenderness. Labs and Radiology: reviewed. A/P: 50 yo male PMHx DLP, depression, chronic back pain, and seasonal allergies presented for several day history of worsening weakness and fatigue, admitted for severe hypoxic respiratory failure secondary to COVID pneumonia. Acute hypoxic respiratory failure - 2/2 COVID-19 pneumonia continue decadron, remdesivir day #4 supplemental oxygen - vapotherm weaned to FiO2 0.4 - to maintain O2 sats >90% blood cultures / sputum cultures negative till date. inflammatory markers improving. ceftriaxone and Doxycycline (Day #5) will start ASA. incentive spirometry / acapella inflammatory markers improving Hypokalemia resolved - continue to monitor Normocytic anemia Will continue follow CBC DLP Currently not on medications Depression Currently not on medications Chronic back pain Tylenol PRN Seasonal allergies Currently not on medications DVT prophylaxis Lovenox 40BID GI prophylaxis protonix Disposition: continue current plan of care, patient improving VS,Fishbone, I+O VS, Fishbone, I+O Laboratory Tests 05/07/20 05:02 Vital Signs Date Time Temp Pulse Resp B/P (MAP) Pulse Ox O2 Delivery O2 Flow Rate FiO2 05/07/20 09:54 91 Nasal Cannula 40.0 40 05/07/20 08:00 98.4 77 22 147/101 (116) I&O- Last 24 Hours up to 6 AM 05/07/20 06:00 Intake Total 3840 ml Output Total 800 ml Balance 3040 ml LIAM CASTILLO MD May 07, 2020 13:01
[2020-05-07] MEDS: ASPIRIN 81 MG ENTERIC TAB PO SCH (13:12)
[2020-05-07] MEDS: cefTRIAXone SOD 1 GM in D5W MINI-BAG PLUS 50 ML IV SCH (13:13)
[2020-05-07] MEDS: REMDESIVIR (INVESTIGATIONAL) 100 MG in NS 230 ML IV SCH (16:20)
[2020-05-07] MEDS: SLF 3 ML SYR IV PRN (20:01)
[2020-05-07] MEDS: ACETAMINOPHEN TAB 650MG DOSE (2X325MG) PO PRN (20:01)
[2020-05-08] VITALS: BP 140/90
[2020-05-08] MEDS: DOXYCYCLINE HYCLATE 100 MG in D5W MINI-BAG PLUS 100 ML IV SCH ×2 (02:34→14:00)
[2020-05-08 04:00] VITALS: BP 148/93
[2020-05-08] MEDS: SLF 3 ML SYR IV SCH ×3 (04:52→21:47)
[2020-05-08 05:12] LABS: HEMATOCRIT 42.3 % (42.0-52.0); HEMOGLOBIN 13.8 g/dl (13.5-17.5); MEAN CORPUSCULAR HEMOGLOBIN 28.2 pg (27.0-33.0); MEAN CORPUSCULAR HGB CONC 32.6 g/dl (32.0-36.5); MEAN CORPUSCULAR VOLUME 86.5 fl (80.0-96.0); PLATELET COUNT, AUTOMATED 361 10^3/uL (150-450); RED BLOOD COUNT 4.89 10^6/uL (4.30-6.10); WHITE BLOOD COUNT 7.3 10^3/uL (4.0-10.0)
[2020-05-08 05:22] LABS: INR 1.24; PROTHROMBIN TIME 15.9 SECONDS (12.5-14.3)
[2020-05-08 05:23] LABS: PARTIAL THROMBOPLASTIN TIME 33.3 SECONDS (24.2-38.5)
[2020-05-08 05:38] LABS: EOSINOPHILS 4 % (0-3); LYMPHOCYTES 14 % (16-44); METAMYELOCYTES 1 % (0-0); MONOCYTES 3 % (0-5); NEUTROPHILS 76 % (28-66)
[2020-05-08 05:39] LABS: PLATELET ESTIMATE NORMAL (NORMAL)
[2020-05-08 05:42] LABS: ALBUMIN 2.8 GM/DL (3.2-5.2); ALT/SGPT 90 U/L (12-78); BILIRUBIN,DIRECT 0.2 MG/DL (0.0-0.2); BILIRUBIN,TOTAL 0.7 MG/DL (0.2-1.0); BLOOD UREA NITROGEN 18 MG/DL (7-18); C REACTIVE PROTEIN QUANTITATIV 1.36 MG/DL (0.00-0.30); CALCIUM LEVEL 8.1 MG/DL (8.5-10.1); CARBON DIOXIDE LEVEL 25 MEQ/L (21-32); CHLORIDE LEVEL 109 MEQ/L (98-107); CREATININE FOR GFR 0.79 MG/DL (0.70-1.30); FERRITIN 1212 NG/ML (26-388); GLOMERULAR FILTRATION RATE > 60.0 (>56); GLUCOSE, FASTING 100 MG/DL (70-100); MAGNESIUM LEVEL 2.1 MG/DL (1.8-2.4); POTASSIUM SERUM 3.7 MEQ/L (3.5-5.1); SODIUM LEVEL 141 MEQ/L (136-145); TOTAL PROTEIN 5.3 GM/DL (6.4-8.2)
[2020-05-08 08:00] VITALS: BP 147/101
[2020-05-08] MEDS: ASPIRIN 81 MG ENTERIC TAB PO SCH (09:18)
[2020-05-08] MEDS: PANTOPRAZOLE 40MG VIAL (C9113 PER 1) IV SCH (09:18)
[2020-05-08] MEDS: ENOXAPARIN 40MG/0.4ML SYRINGE (J1650 PER 10MG) SC SCH ×2 (09:19→20:03)
[2020-05-08 12:00] VITALS: BP 145/104
[2020-05-08] MEDS: guaiFENesin ER 600 MG TAB PO SCH ×2 (12:13→20:02)
[2020-05-08] MEDS: cefTRIAXone SOD 1 GM in D5W MINI-BAG PLUS 50 ML IV SCH (13:06)
[2020-05-08 16:00] VITALS: BP 152/104
--- NOTE | 2020-05-08 16:26 | IPNPDOC ---
Subjective Date Seen The patient was seen on 05/08/20. Subjective Chief Complaint/HPI Mr. Colon is a 50 year old male here with COVID PNA. No events overnight, but he is sleeping prone and still requiring Vapotherm. Unable to wean to hi flow NC. Otherwise, patient reports dyspnea on awaking, but better throughout the day. Denies fever, chest pain, abdominal pain, or dysuria. Objective Physical Examination General Exam: Positive: Cooperative Eye Exam: Positive: EOMI; Negative: Sclera icteric ENT Exam: Positive: Atraumatic Neck Exam: Positive: Supple Chest Exam: Positive: Other (bibasilar crackles) Heart Exam: Positive: Rate Normal, Regular Rhythm Abdomen Exam: Positive: Normal bowel sounds, Soft; Negative: Tenderness Extremity Exam: Negative: Edema Neuro Exam: Positive: Cranial Nerves 3-12 NL Psych Exam: Positive: Mental status NL, Mood NL Assessment /Plan Assessment Mr. Colon is a 50 year old male here with COVID PNA. He has completed 5 days of Remdesivir (was given a dose in the ED on 05/03/2020 and had 4 doses on the floor). Inflammatory markers show improvement, but still requires Vapotherm. Unable to titrate down to high flow. Touch based with ID, since he was tested positive on 04/26/2020, it's been more than 10 days and he would not benefit from more Remdesivir. Discontinued Remdesivir. Repeat procalcitonin ordered for tomorrow morning. If decreases, will d/c antibiotics. Pending improvement in respiratory status Plan/VTE VTE Prophylaxis Ordered?: Yes Plan 1. COVID PNA -Tested positive on 04/26/2020 -Completed 5 days of Remdesivir, improvement with inflammatory markers, but still requiring Vapotherm -Repeat Procalcitonin tomorrow morning to determine if he needs to continue antibiotics 2. Acute hypoxic respiratory failure -On admission, desaturated to 70% while at room air -Still requiring Vapotherm -Continue antibiotics and weaning off oxygen 3. Hypokalemia -Resolved, continue to monitor 4. Normocytic anemia -Resolved, continue to monitor 5. Insomnia -Continue Ramelteon 6. DVT ppx -Lovenox Dispo: Pending improvement in respiratory status VS, I&O, 24H, Fishbone Vital Signs/I&O Vital Signs Date Time Temp Pulse Resp B/P (MAP) Pulse Ox O2 Delivery O2 Flow Rate FiO2 05/08/20 12:00 25.0 40 05/08/20 12:00 98.4 103 20 145/104 (118) 89 HVNI-Vapotherm I&O- Last 24 Hours up to 6 AM 05/08/20 06:00 Intake Total 2780 ml Output Total 1625 ml Balance 1155 ml Laboratory Data 24H LABS Laboratory Tests 2 05/08/20 05:00: Immature Granulocyte % (Auto) , Neutrophils (%) (Auto) , Nucleated Red Blood Cells % (auto) 0.4H, Neutrophils 76H, Band Neutrophils 2, Lymphocytes (Manual) 14L, Monocytes (Manual) 3, Eosinophils (Manual) 4H, Metamyelocytes 1H, Red Blood Cell Morphology NORMAL, Platelet Estimate NORMAL, Prothrombin Time 15.9H, Prothromb Time International Ratio 1.24, Activated Partial Thromboplast Time 33.3, Fibrinogen 384, Anion Gap 7L, Glomerular Filtration Rate > 60.0, Calcium Level 8.1L, Magnesium Level 2.1, Ferritin 1212H, Total Bilirubin 0.7, Direct Bilirubin 0.2, Aspartate Amino Transf (AST/SGOT) 69H, Alanine Aminotransferase (ALT/SGPT) 90H, Alkaline Phosphatase 60, C-Reactive Protein, Quantitative 1.36H, Total Protein 5.3L, Albumin 2.8#L, Albumin/Globulin Ratio 1.1 CBC/BMP Laboratory Tests 05/08/20 05:00 Microbiology Microbiology 05/03/20 Blood Culture - Final, Complete NO GROWTH AFTER 5 DAYS 05/03/20 Blood Culture - Final, Complete NO GROWTH AFTER 5 DAYS YAQUELIN PEREIRA DO May 08, 2020 16:26
[2020-05-08 20:00] VITALS: BP 149/103
[2020-05-08] MEDS: ACETAMINOPHEN TAB 650MG DOSE (2X325MG) PO PRN (20:03)
[2020-05-09] VITALS: BP 127/86
[2020-05-09] MEDS: DOXYCYCLINE HYCLATE 100 MG in D5W MINI-BAG PLUS 100 ML IV SCH ×2 (02:57→15:38)
[2020-05-09 04:00] VITALS: BP 122/89
[2020-05-09 05:49] LABS: HEMATOCRIT 42.8 % (42.0-52.0); HEMOGLOBIN 13.8 g/dl (13.5-17.5); MEAN CORPUSCULAR HEMOGLOBIN 28.3 pg (27.0-33.0); MEAN CORPUSCULAR HGB CONC 32.2 g/dl (32.0-36.5); MEAN CORPUSCULAR VOLUME 87.7 fl (80.0-96.0); PLATELET COUNT, AUTOMATED 353 10^3/uL (150-450); RED BLOOD COUNT 4.88 10^6/uL (4.30-6.10); WHITE BLOOD COUNT 7.6 10^3/uL (4.0-10.0)
[2020-05-09] MEDS: SLF 3 ML SYR IV SCH ×3 (06:02→22:00)
[2020-05-09 06:11] LABS: BLOOD UREA NITROGEN 24 MG/DL (7-18); C REACTIVE PROTEIN QUANTITATIV 0.81 MG/DL (0.00-0.30); CALCIUM LEVEL 8.4 MG/DL (8.5-10.1); CARBON DIOXIDE LEVEL 28 MEQ/L (21-32); CHLORIDE LEVEL 108 MEQ/L (98-107); CREATININE FOR GFR 0.82 MG/DL (0.70-1.30); GLOMERULAR FILTRATION RATE > 60.0 (>56); GLUCOSE, FASTING 92 MG/DL (70-100); SODIUM LEVEL 139 MEQ/L (136-145)
[2020-05-09 08:00] VITALS: BP 131/100
[2020-05-09] MEDS: PANTOPRAZOLE 40MG VIAL (C9113 PER 1) IV SCH (08:30)
[2020-05-09] MEDS: ASPIRIN 81 MG ENTERIC TAB PO SCH (08:30)
[2020-05-09] MEDS: ENOXAPARIN 40MG/0.4ML SYRINGE (J1650 PER 10MG) SC SCH ×2 (08:30→21:04)
[2020-05-09] MEDS: guaiFENesin ER 600 MG TAB PO SCH ×2 (08:30→21:04)
[2020-05-09] MEDS: cefTRIAXone SOD 1 GM in D5W MINI-BAG PLUS 50 ML IV SCH (12:45)
[2020-05-09 16:00] VITALS: BP 137/93; O2SAT 90
--- NOTE | 2020-05-09 18:48 | IPNPDOC ---
Subjective Date Seen The patient was seen on 05/09/20. Subjective Chief Complaint/HPI Mr. Colon is a 50 year old male here with COVID PNA. No events overnight, but he is still sleeping prone. His FiO2 has not decreased, but he was able to decrease the flow rate. Intermittently on Hi flow nasal canula. Otherwise, still reports morning dyspnea, which improves throughout the day. Denies fever, chest pain, abdominal pain, or dysuria. Objective Physical Examination General Exam: Positive: Cooperative Eye Exam: Positive: EOMI; Negative: Sclera icteric ENT Exam: Positive: Atraumatic Neck Exam: Positive: Supple Chest Exam: Positive: Other (bibasilar crackles) Heart Exam: Positive: Rate Normal, Regular Rhythm Abdomen Exam: Positive: Normal bowel sounds, Soft; Negative: Tenderness Extremity Exam: Negative: Edema Neuro Exam: Positive: Cranial Nerves 3-12 NL Psych Exam: Positive: Mental status NL, Mood NL Assessment /Plan Assessment Mr. Colon is a 50 year old male here with COVID PNA. He has completed 5 days of Remdesivir (was given a dose in the ED on 05/03/2020 and had 4 doses on the floor). Inflammatory markers show improvement, but still requires Vapotherm. Unable to titrate down to high flow. Touch based with ID, since he was tested positive on 04/26/2020, it's been more than 10 days and he would not benefit from more Remdesivir. Discontinued Remdesivir. Repeat procalcitonin is low. I have d/c antibiotics. Pending improvement in respiratory status Plan/VTE VTE Prophylaxis Ordered?: Yes Plan 1. COVID PNA -Tested positive on 04/26/2020 -Completed 5 days of Remdesivir, improvement with inflammatory markers -Repeat Procalcitonin has decreased, d/c antibiotics 2. Acute hypoxic respiratory failure -On admission, desaturated to 70% while at room air -Still requiring Vapotherm, but intermittently -Continue weaning off oxygen as tolerated 3. Hypokalemia -Resolved, continue to monitor 4. Normocytic anemia -Resolved, continue to monitor 5. Insomnia -Continue Ramelteon 6. DVT ppx -Lovenox Dispo: Pending improvement in respiratory status VS, I&O, 24H, Fishbone Vital Signs/I&O Vital Signs Date Time Temp Pulse Resp B/P (MAP) Pulse Ox O2 Delivery O2 Flow Rate FiO2 05/09/20 18:00 104 22 92 High Flow Cannula 10.0 05/09/20 16:00 98.7 137/93 (108) 05/09/20 12:00 40 I&O- Last 24 Hours up to 6 AM 05/09/20 06:00 Intake Total 1535 ml Output Total 875 ml Balance 660 ml Laboratory Data 24H LABS Laboratory Tests 2 05/09/20 05:36: Nucleated Red Blood Cells % (auto) 0.0, Anion Gap 3L, Glomerular Filtration Rate > 60.0, Calcium Level 8.4L, C-Reactive Protein, Quantitative 0.81H, Procalcitoni n 0.06 CBC/BMP Laboratory Tests 05/09/20 05:36 Microbiology Microbiology 05/03/20 Blood Culture - Final, Complete NO GROWTH AFTER 5 DAYS 05/03/20 Blood Culture - Final, Complete NO GROWTH AFTER 5 DAYS YAQUELIN PEREIRA DO May 09, 2020 18:48
[2020-05-09 20:00] VITALS: BP 131/92
[2020-05-09] MEDS: ACETAMINOPHEN TAB 650MG DOSE (2X325MG) PO PRN (21:11)
[2020-05-10] VITALS (10 sets, daily range): BP systolic 100–132; BP diastolic 76–89
[2020-05-10 04:44] LABS: HEMATOCRIT 42.2 % (42.0-52.0); HEMOGLOBIN 13.5 g/dl (13.5-17.5); MEAN CORPUSCULAR HEMOGLOBIN 28.1 pg (27.0-33.0); MEAN CORPUSCULAR VOLUME 87.9 fl (80.0-96.0); PLATELET COUNT, AUTOMATED 334 10^3/uL (150-450); WHITE BLOOD COUNT 6.9 10^3/uL (4.0-10.0)
[2020-05-10 05:18] LABS: BLOOD UREA NITROGEN 26 MG/DL (7-18); C REACTIVE PROTEIN QUANTITATIV 0.46 MG/DL (0.00-0.30); CALCIUM LEVEL 8.1 MG/DL (8.5-10.1); CARBON DIOXIDE LEVEL 27 MEQ/L (21-32); CHLORIDE LEVEL 108 MEQ/L (98-107); CREATININE FOR GFR 0.77 MG/DL (0.70-1.30); GLOMERULAR FILTRATION RATE > 60.0 (>56); GLUCOSE, FASTING 96 MG/DL (70-100); POTASSIUM SERUM 4.2 MEQ/L (3.5-5.1); SODIUM LEVEL 142 MEQ/L (136-145)
[2020-05-10] MEDS: SLF 3 ML SYR IV SCH ×3 (06:06→21:49)
[2020-05-10] MEDS: ASPIRIN 81 MG ENTERIC TAB PO SCH (09:05)
[2020-05-10] MEDS: ENOXAPARIN 40MG/0.4ML SYRINGE (J1650 PER 10MG) SC SCH ×2 (09:05→20:51)
[2020-05-10] MEDS: PANTOPRAZOLE 40MG TAB (PROTONIX) PO SCH (09:05)
[2020-05-10] MEDS: guaiFENesin ER 600 MG TAB PO SCH ×2 (09:05→20:51)
--- NOTE | 2020-05-10 14:42 | IPNPDOC ---
Subjective Date Seen The patient was seen on 05/10/20. Subjective Chief Complaint/HPI Mr. Colon is a 50 year old male here with COVID PNA. Overnight, he did not require Vapotherm. They were able to wean him down to 8 L of high flow nasal cannula. Otherwise, so reports morning dyspnea which improves throughout the day. Denies any fever, chest pain, abdominal pain, or dysuria. Objective Physical Examination General Exam: Positive: Cooperative Eye Exam: Positive: EOMI; Negative: Sclera icteric ENT Exam: Positive: Atraumatic Neck Exam: Positive: Supple Chest Exam: Positive: Other (bibasilar crackles) Heart Exam: Positive: Rate Normal, Regular Rhythm Abdomen Exam: Positive: Normal bowel sounds, Soft; Negative: Tenderness Extremity Exam: Negative: Edema Neuro Exam: Positive: Cranial Nerves 3-12 NL Psych Exam: Positive: Mental status NL, Mood NL Assessment /Plan Assessment Mr. Colon is a 50 year old male here with COVID PNA. He has completed 5 days of Remdesivir (was given a dose in the ED on 05/03/2020 and had 4 doses on the floor). Inflammatory markers show improvement. We were able to wean him to high flow nasal cannula. No need for further antibiotics as repeat pro-calcitonin as well. Pending improvement in respiratory status Plan/VTE VTE Prophylaxis Ordered?: Yes Plan 1. COVID PNA -Tested positive on 04/26/2020 -Completed 5 days of Remdesivir, improvement with inflammatory markers -Repeat Procalcitonin has decreased, d/c antibiotics 2. Acute hypoxic respiratory failure -On admission, desaturated to 70% while at room air -Still requiring Vapotherm, but intermittently -Continue weaning off oxygen as tolerated 3. Hypokalemia -Resolved, continue to monitor 4. Normocytic anemia -Resolved, continue to monitor 5. Insomnia -Continue Ramelteon 6. DVT ppx -Lovenox Dispo: Pending improvement in respiratory status VS, I&O, 24H, Fishbone Vital Signs/I&O Vital Signs Date Time Temp Pulse Resp B/P (MAP) Pulse Ox O2 Delivery O2 Flow Rate FiO2 05/10/20 13:00 92 22 94 High Flow Cannula 8.0 05/10/20 12:00 98.0 129/88 (102) 05/09/20 12:00 40 I&O- Last 24 Hours up to 6 AM 05/10/20 06:00 Intake Total 1210 ml Output Total 600 ml Balance 610 ml Laboratory Data 24H LABS Laboratory Tests 2 05/10/20 04:39: Nucleated Red Blood Cells % (auto) 0.0, Anion Gap 7L, Glomerular Filtration Rate > 60.0, Calcium Level 8.1L, C-Reactive Protein, Quantitative 0.46H CBC/BMP Laboratory Tests 05/10/20 04:39 Microbiology Microbiology 05/03/20 Blood Culture - Final, Complete NO GROWTH AFTER 5 DAYS 05/03/20 Blood Culture - Final, Complete NO GROWTH AFTER 5 DAYS YAQUELIN PEREIRA DO May 10, 2020 14:42
[2020-05-10] MEDS: ACETAMINOPHEN TAB 650MG DOSE (2X325MG) PO PRN (20:51)
[2020-05-11] VITALS: BP 117/86
[2020-05-11] MEDS: SLF 3 ML SYR IV SCH (05:16)
[2020-05-11 05:44] LABS: HEMATOCRIT 42.1 % (42.0-52.0); HEMOGLOBIN 13.4 g/dl (13.5-17.5); MEAN CORPUSCULAR HEMOGLOBIN 28.2 pg (27.0-33.0); MEAN CORPUSCULAR HGB CONC 31.8 g/dl (32.0-36.5); MEAN CORPUSCULAR VOLUME 88.4 fl (80.0-96.0); PLATELET COUNT, AUTOMATED 331 10^3/uL (150-450); RED BLOOD COUNT 4.76 10^6/uL (4.30-6.10); WHITE BLOOD COUNT 6.8 10^3/uL (4.0-10.0)
[2020-05-11 06:08] LABS: BLOOD UREA NITROGEN 26 MG/DL (7-18); CARBON DIOXIDE LEVEL 27 MEQ/L (21-32); CHLORIDE LEVEL 109 MEQ/L (98-107); CREATININE FOR GFR 0.69 MG/DL (0.70-1.30); GLOMERULAR FILTRATION RATE > 60.0 (>56); GLUCOSE, FASTING 97 MG/DL (70-100); SODIUM LEVEL 142 MEQ/L (136-145)
[2020-05-11 06:09] LABS: CALCIUM LEVEL 7.8 MG/DL (8.5-10.1)
[2020-05-11] MEDS: ENOXAPARIN 40MG/0.4ML SYRINGE (J1650 PER 10MG) SC SCH ×2 (08:35→20:39)
[2020-05-11] MEDS: guaiFENesin ER 600 MG TAB PO SCH ×2 (08:35→20:39)
[2020-05-11] MEDS: ASPIRIN 81 MG ENTERIC TAB PO SCH (08:35)
[2020-05-11] MEDS: PANTOPRAZOLE 40MG TAB (PROTONIX) PO SCH (08:35)
[2020-05-11 09:00] VITALS: BP 123/85
--- NOTE | 2020-05-11 12:56 | IPNPDOC ---
Subjective Date Seen The patient was seen on 05/11/20. Subjective Chief Complaint/HPI Mr. Colon is a 50 year old male here with COVID PNA. No events overnight. He prefers to sleep supine but has been sleeping prone due to COVID positive status. Continues to wean down on oxygen. May be able to be downgraded later this afternoon. Otherwise, denies fever, chest pain, abdominal pain, or dysuria. Dyspnea in the morning. Objective Physical Examination General Exam: Positive: Cooperative Eye Exam: Positive: EOMI; Negative: Sclera icteric ENT Exam: Positive: Atraumatic Neck Exam: Positive: Supple Chest Exam: Positive: Other (bibasilar crackles) Heart Exam: Positive: Rate Normal, Regular Rhythm Abdomen Exam: Positive: Normal bowel sounds, Soft; Negative: Tenderness Extremity Exam: Negative: Edema Neuro Exam: Positive: Cranial Nerves 3-12 NL Psych Exam: Positive: Mental status NL, Mood NL Assessment /Plan Assessment Mr. Colon is a 50 year old male here with COVID PNA. He has completed 5 days of Remdesivir (was given a dose in the ED on 05/03/2020 and had 4 doses on the floor). Inflammatory markers show improvement. No need for further antibiotics as repeat pro-calcitonin as well. Pending improvement in respiratory status Plan/VTE VTE Prophylaxis Ordered?: Yes Plan 1. COVID PNA -Tested positive on 04/26/2020 -Completed 5 days of Remdesivir, improvement with inflammatory markers -Repeat Procalcitonin has decreased, d/c antibiotics 2. Acute hypoxic respiratory failure -On admission, desaturated to 70% while at room air -Still requiring Vapotherm, but intermittently -Continue weaning off oxygen as tolerated 3. Hypokalemia -Resolved, continue to monitor 4. Normocytic anemia -Resolved, continue to monitor 5. Insomnia -Continue Ramelteon 6. DVT ppx -Lovenox Dispo: Pending improvement in respiratory status. May be able to be downgraded this afternoon if he continues to wean down oxygen VS, I&O, 24H, Fishbone Vital Signs/I&O Vital Signs Date Time Temp Pulse Resp B/P (MAP) Pulse Ox O2 Delivery O2 Flow Rate FiO2 05/11/20 11:00 102 22 94 Nasal Cannula 6.0 05/11/20 09:00 97.4 123/85 (98) 05/09/20 12:00 40 I&O- Last 24 Hours up to 6 AM 05/11/20 06:00 Intake Total 740 ml Output Total 750 ml Balance -10 ml Laboratory Data 24H LABS Laboratory Tests 2 05/11/20 05:10: Nucleated Red Blood Cells % (auto) 0.0, Anion Gap 6L, Glomerular Filtration Rate > 60.0, Calcium Level 7.8L CBC/BMP Laboratory Tests 05/11/20 05:10 Microbiology Microbiology 05/03/20 Blood Culture - Final, Complete NO GROWTH AFTER 5 DAYS 05/03/20 Blood Culture - Final, Complete NO GROWTH AFTER 5 DAYS YAQUELIN PEREIRA DO May 11, 2020 12:56
[2020-05-11 15:15] VITALS: BP 114/84
[2020-05-11 16:00] VITALS: BP 114/84
[2020-05-11 20:00] VITALS: BP 117/82
[2020-05-11] MEDS: ACETAMINOPHEN TAB 650MG DOSE (2X325MG) PO PRN (22:46)
[2020-05-12 04:00] VITALS: BP 118/82
[2020-05-12 07:32] LABS: HEMATOCRIT 42.1 % (42.0-52.0); HEMOGLOBIN 13.3 g/dl (13.5-17.5); MEAN CORPUSCULAR HEMOGLOBIN 28.1 pg (27.0-33.0); MEAN CORPUSCULAR HGB CONC 31.6 g/dl (32.0-36.5); PLATELET COUNT, AUTOMATED 291 10^3/uL (150-450); RED BLOOD COUNT 4.73 10^6/uL (4.30-6.10); WHITE BLOOD COUNT 5.7 10^3/uL (4.0-10.0)
[2020-05-12 07:54] LABS: BLOOD UREA NITROGEN 24 MG/DL (7-18); CARBON DIOXIDE LEVEL 29 MEQ/L (21-32); CHLORIDE LEVEL 110 MEQ/L (98-107); CREATININE FOR GFR 0.73 MG/DL (0.70-1.30); GLOMERULAR FILTRATION RATE > 60.0 (>56); GLUCOSE, FASTING 102 MG/DL (70-100); POTASSIUM SERUM 4.3 MEQ/L (3.5-5.1); SODIUM LEVEL 143 MEQ/L (136-145)
[2020-05-12] MEDS: ENOXAPARIN 40MG/0.4ML SYRINGE (J1650 PER 10MG) SC SCH (09:54)
[2020-05-12] MEDS: PANTOPRAZOLE 40MG TAB (PROTONIX) PO SCH (09:54)
[2020-05-12] MEDS: ASPIRIN 81 MG ENTERIC TAB PO SCH (09:54)
[2020-05-12] MEDS: guaiFENesin ER 600 MG TAB PO SCH (09:54)
[2020-05-12 13:30] VITALS: O2SAT 86
[2020-05-12 14:00] VITALS: BP 130/82
[2020-05-12] MEDS ORDERED: PANT40TA29 PO (14:37)
[2020-05-12] MEDS ORDERED: MUCI600T31 PO (14:37)
[2020-05-12] MEDS ORDERED: ASPI81TAEC PO (14:37)
[2020-05-12] MEDS ORDERED: LOVE1INJ SC (14:37)
--- NOTE | 2020-05-12 20:28 | DS.PDOC ---
Discharge Summary General Date of Admission May 03, 2020 at 13:15 Date of Discharge May 12, 2020 Attending Physician: YAQUELIN PEREIRA DO [facility], Dr. [place] Discharge Summary PROCEDURES PERFORMED DURING STAY: [None]. ADMITTING DIAGNOSES: 1. Acute hypoxic respiratory failure 2. COVID pneumonia 3. Hypokalemia 4. Normocytic anemia 5. Dyslipidemia 6. Depression 7. Chronic back pain 8. Seasonal allergies DISCHARGE DIAGNOSES: 1. Acute hypoxic respiratory failure 2. COVID pneumonia 3. Hypokalemia 4. Normocytic anemia 5. Dyslipidemia 6. Depression 7. Chronic back pain 8. Seasonal allergies COMPLICATIONS/CHIEF COMPLAINT: Covid-19. HISTORY OF PRESENT ILLNESS: Mr. Colon is a 50-year-old male with seasonal allergies who presented to the ED for weakness and fatigue. On 04/24/2020, he was experiencing a mild cough. He went for COVID testing on 04/26/2020 at urgent care. His was found to be positive and he self isolated at home. He progressively felt weaker and came to the ED for further evaluation. While in the ED, he saturated at 74% at room air. He required Vapotherm at 100% FiO2 and his saturation was 94%. Patient was treated with dexamethasone, Remdesivir, ceftriaxone, and doxycycline. He was taught to prone as well HOSPITAL COURSE: He completed 5 days of Remdesivir. His inflammatory markers were monitored and demonstrated improvement. Repeat pro-calcitonin was low and antibiotics were discontinued. He is able to be weaned from Vapotherm to high flow nasal cannula. He was eventually weaned to nasal cannula. Today, he felt well. He ambulated well as well. Denied any fever or chills, lightheadedness or dizziness, chest pain, abdominal pain, diarrhea, or dysuria. He felt that he can go home with oxygen as needed. When we took him off of oxygen, he desaturated down to 86%. He qualified for home oxygen. His father is also COVID positive and home health services to visit him. They can visited on both the patient and his father. He felt ready for home and was subsequently discharged. DISCHARGE MEDICATIONS: Please see below. ALLERGIES: Please see below. PHYSICAL EXAMINATION ON DISCHARGE: VITAL SIGNS: Please see below. GENERAL: Comfortable, in no apparent distress. HEENT: Head normocephalic/atraumatic, EOMI, sclera clear. NECK: Supple, no JVD. RESPIRATORY: Lungs clear to auscultation bilaterally, no rales, wheeze or rhonchi. CARDIOVASCULAR: Regular rate and rhythm. ABDOMEN: Soft, nontender, no guarding or rebound tenderness. Normal bowel sounds. MUSCLE SKELETAL: Muscle strength 5/5 in all extremities. NEUROLOGICAL: CN 312 grossly intact, no focal deficits noted. PSYCHOLOGICAL: Normal mood and affect LABORATORY DATA: Please see below. IMAGING: Chest x-ray Multifocal infiltrates and areas of consolidation consistent with COVID-19 PROGNOSIS: Stable ACTIVITY: As tolerated. DIET: As tolerated DISCHARGE PLAN: Home DISPOSITION: Home, Self-Care. DISCHARGE INSTRUCTIONS: 1. Follow-up with her PCP within one week DISCHARGE CONDITION: Stable. Total time spent on discharge planning, discharge summary, medication reconciliation: 45 minutes Vital Signs/I&Os Vital Signs Date Time Temp Pulse Resp B/P (MAP) Pulse Ox O2 Delivery O2 Flow Rate FiO2 05/12/20 14:00 98.6 105 19 130/82 (98) 91 Nasal Cannula 2.0 05/09/20 12:00 40 I&O- Last 24 Hours up to 6 AM 05/12/20 06:00 Intake Total 720 ml Output Total 550 ml Balance 170 ml Laboratory Data Labs 24H Laboratory Tests 2 05/12/20 07:16: Nucleated Red Blood Cells % (auto) 0.0, Anion Gap 4L, Glomerular Filtration Rate > 60.0, Calcium Level 8.0L CBC/BMP Laboratory Tests 05/12/20 07:16 Microbiology Microbiology 05/03/20 Blood Culture - Final, Complete NO GROWTH AFTER 5 DAYS 05/03/20 Blood Culture - Final, Complete NO GROWTH AFTER 5 DAYS Discharge Medications Scheduled Aspirin (Aspirin EC) 81 Mg Tablet.dr, 81 MG PO DAILY Guaifenesin (Mucinex) 600 Mg Tab.er.12h, 600 MG PO BID Pantoprazole Sodium (Pantoprazole Sodium) 40 Mg Tablet.dr, 40 MG PO DAILY Allergies Coded Allergies: No Known Allergies (Unverified , 05/03/20) YAQUELIN PEREIRA DO May 12, 2020 20:28
== END 2020-05-12 18:30 | disposition home health service (06) | DRG 137 ==
LOC: EDBD 11:47 → M ED 11:47 → M ED INP 13:15 → ENRESERV 13:28 → M ICU 14:55 → M 4MAIN 05-11 15:10
PROVIDERS: ADMIT Internal Medicine; ATTEND Internal Medicine
PROC: XW043E5 Introduction of Remdesivir Anti-infective into Central Vein, Percutaneous Approach, New Technology Group 5 (ICD-10-PCS; principal; 2020-05-03)
PROC: XW033H5 Introduction of Tocilizumab into Peripheral Vein, Percutaneous Approach, New Technology Group 5 (ICD-10-PCS; 2020-05-03)
DX: U07.1 COVID-19 (principal); J96.01 Acute respiratory failure with hypoxia; J12.89 Other viral pneumonia; E87.6 Hypokalemia; D64.9 Anemia, unspecified; E78.5 Hyperlipidemia, unspecified; F32.9 Major depressive disorder, single episode, unspecified; M54.9 Dorsalgia, unspecified; J30.2 Other seasonal allergic rhinitis; G47.00 Insomnia, unspecified

== ENCOUNTER → 2020-08-10 | Outpatient (CLI) | payer OTHER ==
[~2020-08-10] MED LIST: ACET-897 PO; ASPI-569 PO; ISOVUE-370 76% 100ML VIAL As Ordered ONE; LOVE1INJ SC; MUCI600T31 PO; PANT40TA29 PO
--- NOTE | 2020-08-10 20:22 | REP ---
INDICATION: DYSPNEA COMPARISON: None. TECHNIQUE: Axial contrast enhanced images from the thoracic inlet to the upper abdomen using pulmonary embolus technique with multiplanar re-formations. 75 ml Isovue 370 intravenous contrast material administered without complication. This CT examination was performed using the following dose reduction techniques: Automated exposure control, adjustment of mA and/or kv according to the patient's size, and use of iterative reconstruction technique. FINDINGS: Satisfactory enhancement of the pulmonary vasculature is achieved and no filling defects are identified to suggest pulmonary embolus. Further evaluation of the mediastinum demonstrates normal thoracic aorta, heart and pericardium. The bilateral lung bardales are well aerated and clear without consolidation, pleural effusion or pneumothorax. Tracheobronchial tree is patent and without bronchiectasis. No obvious significant nodule or mass lesion is identified. Mediastinal and hilar lymph nodes measuring up to approximately 10 mm are nonspecific. Surrounding musculoskeletal structures intact IMPRESSION: 1. No evidence for pulmonary embolus. 2. No acute mediastinal or pleural parenchymal process. 3. Few mediastinal and hilar lymph nodes measuring up to 10 mm are otherwise nonspecific. <Electronically signed by Osman Julien > 08/10/202018
== END ==
LOC: M RAD 17:17
PROVIDERS: ATTEND Internal Medicine Pulmonary Disease
DX: R06.02 Shortness of breath (principal)
CPT/HCPCS: 71275; Q9967

== ENCOUNTER → 2020-08-13 | Outpatient (CLI) | payer OTHER ==
[~2020-08-13] MED LIST changes: -ISOVUE-370 76% 100ML VIAL As Ordered ONE
--- NOTE | 2020-08-15 12:09 | ECHO ---
DATE OF PROCEDURE: 08/13/2020 Age: 50 years Gender: Male Height: 64 inches Weight: 190 pounds Body Surface Area: 1.91 m2. Outpatient REFERRING PHYSICIAN: DO FERNANDO ASCENCIO MEASUREMENTS: 2D Measurements: RV 3.7 cm LV 4.9 cm Septum 1.0 cm Posterior wall 1.0 cm Aortic Root 3.9 cm LA 3.6 cm LVEF 65% Doppler Measurements: AV 1.06 m/s LVOT 0.86 m/s MV-E 51, A 81, E/A ratio 0.6 Early mitral deceleration time 217 ms E prime medial 7.5, A prime medial 12.7, E prime lateral 8 Average E/E prime ratio 6.6/PCWP - 10 mmHg PV 0.8 m/s Pulmonary artery acceleration time 110 ms RVSP 34 mmHg IVC - 1.8 cm COMMENTS: Normal sinus rhythm with subtle intraventricular conduction disturbance. M-Mode and Two Dimensional Echocardiography was performed with pulse, continuous wave, color flow, and tissue Doppler studies. Normal left ventricular size, wall thickness, and wall motion. Normal left atrial size with Doppler evidence of grade 1 LV diastolic dysfunction, but currently normal estimated mean left atrial pressure. Normal right heart chamber sizes and motion with Doppler evidence of mild pulmonary hypertension. Normal inferior vena cava (IVC) size and collapse against an elevated central venous pressure. Borderline aortic root, but normal ascending aortic diameter. Three equal sized aortic cusps with marginal cusp thickening, but adequate cusp separation and only very mild aortic insufficiency. Normal-appearing mitral valvular apparatus and leaflet excursion with no posterior systolic buckling, and only physiologic very mild mitral insufficiency. Normal-appearing tricuspid valve with very mild insufficiency. No apparent intracardiac mass or pericardial effusion. MTDD
== END ==
LOC: M CARPUL 12:35
PROVIDERS: ATTEND Internal Medicine Pulmonary Disease
DX: R06.01 Orthopnea (principal)

== ENCOUNTER → 2020-09-12 | Outpatient (CLI) | payer OTHER ==
--- NOTE | 2020-09-14 11:08 | SLEEPCENT ---
NOCTURNAL POLYSOMNOGRAPHY DATE: 09/12/2020 ORDERED BY: MARCE Arredondo Diagnostic nocturnal polysomnography was performed for evaluation of sleep physiology in this patient with a history of excessive somnolence and nonrestorative sleep. 7 hours and 2 minutes of data were reviewed. There were 352.5 minutes of sleep identified. Sleep latency was prolonged at 54.5 minutes. REM latency was mildly prolonged at 111.5 minutes. Sleep architecture was good with three REM cycles. Overall sleep efficiency was 84.5%. The electrocardiogram showed a sinus rhythm with an average heart rate of 56 beats per minute. EEG showed fairly normal waveforms for wake and sleep. There were 137 respiratory events identified of 10 seconds in duration or greater for an apnea-hypopnea index of 23.3. The events were obstructive, not exclusive to sleep stage nor body posture. Arousals from respiratory events occurred 10.2 times per hour and oxygen desaturations were seen briefly into the 70s. IMPRESSION: Obstructive sleep apnea syndrome (G47.33), apnea-hypopnea index 23.3. RECOMMENDATION: The patient should be encouraged to return to [facility] for [facility]. In the interim, alcohol and sedative avoidance should be practiced and caution exercised during the operation of motor vehicles.
== END ==
LOC: M SLEEP 20:00
PROVIDERS: ATTEND Physician Assistant
DX: G47.33 Obstructive sleep apnea (adult) (pediatric) (principal)

== ENCOUNTER → 2020-10-24 | Outpatient (CLI) | payer OTHER ==
--- NOTE | 2020-10-25 14:51 | SLEEPCENT ---
DATE: 10/24/2020 ORDERED BY: [place] Nocturnal polysomnography was performed for the titration of pressure therapy in this patient with obstructive sleep apnea syndrome, apnea-hypopnea index 23.3. For testing, the patient was fit with a [employer]Med Quattro full-face mask of large size. There was 4 cm of water pressure applied to the circuit, and the lights were extinguished. There was 6 hours and 57 minutes of data reviewed. There was 294.5 minutes of sleep identified. Sleep latency was prolonged at 86.5 minutes. REM latency was prolonged at 165 minutes. Sleep architecture improved with optimal pressure therapy, and there were two REM cycles noted. Overall sleep efficiency 71.6%. The electrocardiogram shows a sinus rhythm with an average heart rate of 55 beats per minute. EEG showed normal waveforms for wake and sleep. Respiratory events were fully palliated with CPAP at a pressure of 8, and remaining measures of sleep physiology were normal. IMPRESSION: Obstructive sleep apnea syndrome. RECOMMENDATION: Nightly use of pressure therapy, 8 cm of water.
== END ==
LOC: M SLEEP 20:00
PROVIDERS: ATTEND Physician Assistant
DX: G47.33 Obstructive sleep apnea (adult) (pediatric) (principal)

== ENCOUNTER → 2020-10-30 | Outpatient (REF) | payer OTHER ==
[2020-10-30 16:01] LABS: ALBUMIN 4.2 GM/DL (3.2-5.2); ALT/SGPT 39 U/L (12-78); BILIRUBIN,TOTAL 0.7 MG/DL (0.2-1.0); BLOOD UREA NITROGEN 16 MG/DL (7-18); CALCIUM LEVEL 9.2 MG/DL (8.5-10.1); CARBON DIOXIDE LEVEL 28 MEQ/L (21-32); CHLORIDE LEVEL 108 MEQ/L (98-107); CHOLESTEROL LEVEL 171 MG/DL (<200); CHOLESTEROL RISK RATIO 3.976 (<5); CREATININE FOR GFR 1.05 MG/DL (0.70-1.30); GLOMERULAR FILTRATION RATE > 60.0 (>56); GLUCOSE, FASTING 80 MG/DL (70-100); HDL CHOLESTEROL 43 MG/DL (>40); LDL CHOLESTEROL 103 MG/DL (<100); NON-HDL-C 128 MG/DL; POTASSIUM SERUM 4.1 MEQ/L (3.5-5.1); SODIUM LEVEL 143 MEQ/L (136-145); TOTAL PROTEIN 6.9 GM/DL (6.4-8.2); TRIGLYCERIDES LEVEL 127 MG/DL (<150)
== END ==
LOC: M PLALAB 15:05
PROVIDERS: ATTEND Nurse Practitioner Family
DX: Z00.00 Encounter for general adult medical examination without abnormal findings (principal)

== ENCOUNTER → 2022-01-09 | Outpatient (CLI) | payer OTHER ==
[2022-01-09 13:02] LABS: ALBUMIN 3.9 GM/DL (3.2-5.2); ALT/SGPT 46 U/L (12-78); BILIRUBIN,TOTAL 0.5 MG/DL (0.2-1.0); BLOOD UREA NITROGEN 19 MG/DL (7-18); CALCIUM LEVEL 8.9 MG/DL (8.5-10.1); CARBON DIOXIDE LEVEL 26 MEQ/L (21-32); CHLORIDE LEVEL 109 MEQ/L (98-107); CHOLESTEROL LEVEL 180 MG/DL (<200); CHOLESTEROL RISK RATIO 4.615 (<5); CREATININE FOR GFR 1.11 MG/DL (0.70-1.30); GLOMERULAR FILTRATION RATE > 60.0 (>56); GLUCOSE, FASTING 96 MG/DL (70-100); HDL CHOLESTEROL 39 MG/DL (>40); LDL CHOLESTEROL 117 MG/DL (<100); NON-HDL-C 141 MG/DL; POTASSIUM SERUM 4.1 MEQ/L (3.5-5.1); SODIUM LEVEL 140 MEQ/L (136-145); TOTAL PROTEIN 7.1 GM/DL (6.4-8.2); TRIGLYCERIDES LEVEL 120 MG/DL (<150)
== END ==
LOC: M WUC 09:01
PROVIDERS: ATTEND Nurse Practitioner Family
DX: I10 Essential (primary) hypertension (principal)

== ENCOUNTER → 2023-11-12 | Outpatient (CLI) | payer OTHER ==
[2023-11-12 15:19] LABS: BASO % 0.2 % (0.0-1.0); EOS # 0.2 10^3/uL (0.0-0.5); HEMATOCRIT 48.1 % (42.0-52.0); HEMOGLOBIN 15.3 g/dl (13.5-17.5); LYMPH # 1.6 10^3/uL (1.5-5.0); LYMPH % 28.3 % (24.0-44.0); MEAN CORPUSCULAR HEMOGLOBIN 28.4 pg (27.0-33.0); MEAN CORPUSCULAR HGB CONC 31.8 g/dl (32.0-36.5); MEAN CORPUSCULAR VOLUME 89.2 fl (80.0-96.0); MONO # 0.5 10^3/uL (0.0-0.8); NEUTROPHILS # 3.4 10^3/uL (1.5-8.5); NEUTROPHILS % 59.1 % (36.0-66.0); PLATELET COUNT, AUTOMATED 199 10^3/uL (150-450); RED BLOOD COUNT 5.39 10^6/uL (4.30-6.10); WHITE BLOOD COUNT 5.7 10^3/uL (4.0-10.0)
[2023-11-12 15:27] LABS: HEMOGLOBIN A1c 5.6 % (4.0-6.0)
[2023-11-12 15:50] LABS: ALBUMIN 4.1 G/DL (3.2-5.2); ALKALINE PHOSPHATASE 89 U/L (46-116); ALT/SGPT 63 U/L (7.0-40); AST/SGOT 26 U/L (<34); BILIRUBIN,TOTAL 0.6 MG/DL (0.3-1.2); BLOOD UREA NITROGEN 21 MG/DL (9-23); CALCIUM LEVEL 9.1 MG/DL (8.5-10.1); CARBON DIOXIDE LEVEL 29 MMOL/L (20-31); CHLORIDE LEVEL 109 MMOL/L (98-107); CHOLESTEROL LEVEL 183 MG/DL (<200); CHOLESTEROL RISK RATIO 5.08 (<5); CREATININE FOR GFR 1.08 MG/DL (0.70-1.30); GLOMERULAR FILTRATION RATE > 60.0 (>56); GLUCOSE, FASTING 103 MG/DL (60-100); LDL CHOLESTEROL 130.2 MG/DL (<100); POTASSIUM SERUM 4.2 MMOL/L (3.5-5.1); SODIUM LEVEL 144 MMOL/L (136-145); TRIGLYCERIDES LEVEL 84 MG/DL (<150)
== END ==
LOC: M WUC 08:53
PROVIDERS: ATTEND Registered Nurse
DX: I10 Essential (primary) hypertension (principal); E66.9 Obesity, unspecified

== ENCOUNTER → 2023-11-18 | Outpatient (CLI) | payer OTHER | LOC: M PLAIMG 13:37 | PROVIDERS: ATTEND Internal Medicine Cardiovascular Disease | DX: I35.1 Nonrheumatic aortic (valve) insufficiency (principal) ==

== ENCOUNTER → 2023-12-03 | Outpatient (REF) | payer OTHER | LOC: M LAB REF 20:57 | PROVIDERS: ATTEND Registered Nurse | DX: R53.83 Other fatigue (principal) ==

== ENCOUNTER → 2025-02-17 | Outpatient (CLI) | payer OTHER ==
[2025-02-17 14:11] LABS: ALT/SGPT 34 U/L (7.0-40); AST/SGOT 27 U/L (<34); CALCIUM LEVEL 9.5 MG/DL (8.5-10.1); CARBON DIOXIDE LEVEL 28 MMOL/L (20-31); CHLORIDE LEVEL 107 MMOL/L (98-107); CHOLESTEROL LEVEL 108 MG/DL (<200); CHOLESTEROL RISK RATIO 2.52 (<5); CREATININE FOR GFR 0.92 MG/DL (0.70-1.30); GLOMERULAR FILTRATION RATE > 90.0 (>56); LDL CHOLESTEROL 53.5 MG/DL (<100); NON-HDL-C 65.3 MG/DL; POTASSIUM SERUM 4.7 MMOL/L (3.5-5.1); SODIUM LEVEL 146 MMOL/L (136-145); TRIGLYCERIDES LEVEL 59 MG/DL (<150)
== END ==
LOC: M PLALAB 08:20
PROVIDERS: ATTEND Physician Assistant
DX: E78.00 Pure hypercholesterolemia, unspecified (principal)

== ENCOUNTER → 2025-03-14 | Outpatient (CLI) | payer OTHER ==
[2025-03-14 18:36] LABS: BASO # 0.0 10^3/uL (0.0-0.2); BASO % 0.2 % (0.0-1.0); EOS # 0.1 10^3/uL (0.0-0.5); EOS % 2.1 % (0.0-3.0); LYMPH # 1.4 10^3/uL (1.5-5.0); LYMPH % 24.3 % (24.0-44.0); MONO # 0.4 10^3/uL (0.0-0.8); MONO % 7.0 % (2.0-8.0); NEUTROPHILS # 3.7 10^3/uL (1.5-8.5); NEUTROPHILS % 66.2 % (36.0-66.0); PLATELET COUNT, AUTOMATED 234 10^3/uL (150-450)
[2025-03-14 18:45] LABS: ERYTHROCYTE SEDIMENTATION RATE 43 mm/hr (0-20)
[2025-03-14 19:09] LABS: ALT/SGPT 30 U/L (7.0-40); AST/SGOT 27 U/L (<34); C REACTIVE PROTEIN QUANTITATIV 1.15 MG/DL (<1.0); CALCIUM LEVEL 9.0 MG/DL (8.5-10.1); CARBON DIOXIDE LEVEL 29 MMOL/L (20-31); CHLORIDE LEVEL 101 MMOL/L (98-107); CREATININE FOR GFR 0.98 MG/DL (0.70-1.30); GLOMERULAR FILTRATION RATE 89.9 (>56); POTASSIUM SERUM 3.7 MMOL/L (3.5-5.1); RHEUMATOID FACTOR QUANT < 3.5 IU/ML (<14); SODIUM LEVEL 140 MMOL/L (136-145)
[2025-03-14 19:10] LABS: FREE T4 1.00 NG/DL (0.89-1.76)
== END ==
LOC: M WUC 15:47
PROVIDERS: ATTEND Nurse Practitioner Family
DX: M12.9 Arthropathy, unspecified (principal)

== ENCOUNTER → 2025-05-12 | Outpatient (CLI) | payer OTHER ==
[2025-05-12 12:33] LABS: ESTIMATED AVERAGE GLUCOSE 105.0 MG/DL (60-110)
[2025-05-12 12:45] LABS: CHOLESTEROL LEVEL 128.0 MG/DL (<200); CHOLESTEROL RISK RATIO 2.42 (<5); LDL CHOLESTEROL 65.8 MG/DL (<100); NON-HDL-C 75.2 MG/DL; TRIGLYCERIDES LEVEL 47.0 MG/DL (<150)
[2025-05-12 12:47] LABS: FREE T4 0.94 NG/DL (0.89-1.76)
== END ==
LOC: M WUC 08:56
PROVIDERS: ATTEND Registered Nurse
DX: E03.9 Hypothyroidism, unspecified (principal); I10 Essential (primary) hypertension

== ENCOUNTER → 2025-05-23 | Outpatient (CLI) | payer OTHER | LOC: M SOG 07:34 | PROVIDERS: ATTEND Orthopaedic Surgery | DX: M25.511 Pain in right shoulder (principal) ==